=== PATIENT | male | born 1995 | race Two or more races ===

== ENCOUNTER 2025-04-10 20:52 | Emergency (ER) | payer OTHER, SELFPAY ==
[2025-04-10 20:58] VITALS: BP 130/86
--- NOTE | 2025-04-11 00:58 | ED.GENMED ---
History of Present Illness
General
Chief Complaint: Skin Surface Trauma
Source: patient
Exam Limitations: none
Time Seen by Provider: 04/10/25 22:02
Nursing documentation reviewed up to this point in time: agreed with
History of Present Illness
History of Present Illness:
29-year-old male with no significant medical issues presents for evaluation of a left leg laceration. Patient was taking out the trash and a piece of glass was poking through the trash bag and he sustained a laceration of the left lateral lower
leg. Came to the ER for assessment. Tetanus up-to-date as of 2 years ago. He says that the glass did not shatter and he did not note any foreign body in the wound.
Review of Systems
Review of Systems
All Other Systems: ROS reviewed and negative except as documented in HPI and ROS
Skin: Reports other (Laceration)
Phy Exam
Physical Exam
Physical Exam:
General: Well appearing and non-toxic
HEENT: protecting airway
Neck: appears supple
CV: No evidence of cyanosis
Resp: No accessory muscle use
Abd: Non-distended
Extremities: No deformities
Neuro: Alert
Psych: Normal affect
Skin: Patient has approximately 6 cm laceration lateral left lower leg extends to the subcutaneous fat, somewhat gaping but sharp; no foreign body noted on exploration of the wound
Scores
Heart Failure Risk
Heart Failure Risk Score: Not Applicable
Heart Score for Chest Pain Patients
STEMI patient?: Not applicable
Withdrawal Assessment of Alcohol
Withdrawal Assessment Completed?: Not applicable
Course
Orders/Labs/Results
Orders:
Orders
04/10/25 22:04
CR Leg Tibia/fibula Left 2 Vw Urgent
Comment:
Reason For Exam: lac left lat calf; eval for FB
Vital Signs
Initial and Last Documented VS:
Initial Vital Signs
Temp Pulse Resp BP Pulse Ox
36.8 C 72 18 130/86 98
04/10/25 20:58 04/10/25 20:58 04/10/25 20:58 04/10/25 20:58 04/10/25 20:58
Last Documented Vital Signs
Temp Pulse Resp BP Pulse Ox
36.8 C 72 18 130/86 98
04/10/25 20:58 04/10/25 20:58 04/10/25 20:58 04/10/25 20:58 04/10/25 20:58
Procedures
Laceration Closure
Left Lower Leg:
Status of Wound: dirty
Size of Wound in cm: 6
Description of Wound Edges: sharp
Preparation: cleaned with Betadine
Anesthesia: 1% Lidocaine with epi
Revision/Debridement: routine- no revision
Wound exploration: extensive cleaning of contaminated wound and explored to base- no FB
Type of Closure: layered closure
Skin Closure Material: 3-0 nylon (5) and 3-0 chromic gut (3)
Number of sutures: 8
Additional information:
3 simple interrupted subcutaneous Chromic Gut sutures placed
3 horizontal mattress sutures and 2 simple interrupted sutures placed on skin surface with good approximation
Clean dressing applied
MDM/Problems Addressed
Differential Diagnosis Includes:
Leg laceration
MDM/Problems Addressed:
29-year-old male presents with a leg laceration as described above. Tetanus is up-to-date. No foreign body noted on x-ray and no foreign body noted on wound exploration at bedside. Wound was vigorously cleaned and repaired as documented in
procedure note. Spoke about follow-up plan for suture removal, return precautions. All questions answered.
*Radiology
Radiology exam reviewed: preliminary read by ED provider
*Pulse Oximetry
SaO2: 98
Oxygen Mode of Delivery: Room air
Patient hypoxic: no (98%)
*Critical Care Note
Total Time (30-74mins, 75-104mins- exclusive of procedures): Not Applicable
Data Reviewed
Source: patient
ED Attending Note
-
Portions of this chart may have been created with voice recognition software.� Occasional wrong word or��sound alike� substitutions may have occurred due to the inherent limitations of voice recognition software.
Discharge Plan
Departure
Patient Disposition: Home (Routine Discharge)
Date of Disposition: 04/10/25
Time of Disposition: 23:35
Patient with high blood pressure during this ER visit?: No
Discharge Problem:
Laceration of leg
Instructions: Laceration Repair With Stitches (DC)
Referrals:
Kendra Redd CRNP [Family Provider, Family Practice] - Follow up in 1 week
Stand Alone Forms: Return to Work
Activity Restrictions/Additional Instructions:
You were seen in the emergency room for a leg laceration. It was repaired with stitches. You must have your stitches removed in 7 to 10 days. You can either see your primary doctor, go to urgent care, or follow-up here in the emergency room to
have your stitches removed. If you notice any signs of infection please return to the emergency room immediately.
Thank you for visiting the Emergency Department at [facility].
1. Please schedule a follow up appointment as directed. Call first thing tomorrow morning to make an appointment.
2. If indicated, please take your medications as instructed and indicated on discharge paperwork.
3. If any of your symptoms do not improve, or persist, or become more severe within 6-12 hours, please return to the emergency department for further care.
4. Please return to the emergency department if you develop a headache, neck pain/stiffness, fever greater than 100.4F, chest pain, shortness of breath, persistent nausea, vomiting, slurred speech, difficulty walking, numbness/tingling, weakness,
signs of infection or any other symptoms that are worrisome to you.
Please call [phone] if you have any questions.
Interventions
Interventions:
*Risk Screen - Suicide Last Done: 04/10/25 20:58
*Neglect/Abuse Screening Last Done: 04/10/25 20:58
*ED- Fall Risk Assessment Last Done: 04/11/25 00:26
*ED COVID-19 Vaccine History Last Done: 04/11/25 00:26
*Nursing Disposition Last Done: 04/11/25 00:26
ED-Skin Assessment Last Done: 04/11/25 00:26
Discharge Date and Time
Discharge Date/Time: 04/11/25 00:00
Print Language: TELUGU
== END 2025-04-11 | disposition home or self-care (01) ==
LOC: EMR 20:52
PROVIDERS: EMERGENCY PHYSICIAN Emergency Medicine
DX: S81.812A Laceration without foreign body, left lower leg, initial encounter (principal); W25.XXXA Contact with sharp glass, initial encounter
CPT/HCPCS: 12032; 99283; 73590